=== PATIENT | male | born 2000 | race Asian ===

== ENCOUNTER 2025-06-24 17:50 | Inpatient (IN) | payer OTHER ==
[~2025-06-24] VITALS: Ht 180.3 cm; Wt 97.2 kg
[2025-06-24 19:04] LABS: PLATELET COUNT, AUTOMATED 320 10^3/uL (150-450)
[2025-06-24 19:07] LABS: ETHYL ALCOHOL (ETHANOL) 0.003 % (0.000-0.010)
[2025-06-24 19:09] LABS: ALT/SGPT 30 U/L (7.0-40); AST/SGOT 19 U/L (<34); CALCIUM LEVEL 9.8 MG/DL (8.5-10.1); CARBON DIOXIDE LEVEL 27 MMOL/L (20-31); CHLORIDE LEVEL 103 MMOL/L (98-107); CREATININE FOR GFR 0.92 MG/DL (0.70-1.30); GLOMERULAR FILTRATION RATE > 90.0 (>60); POTASSIUM SERUM 3.9 MMOL/L (3.5-5.1); SALICYLATE LEVEL < 3.0 MG/DL (<30); SODIUM LEVEL 141 MMOL/L (136-145)
[2025-06-24 19:17] LABS: AMPHETAMINES LEVEL URINE NEGATIVE (NEGATIVE); BARBITURATES URINE NEGATIVE (NEGATIVE); BENZODIAZEPINES URINE NEGATIVE (NEGATIVE); COCAINE METABOLITE URINE NEGATIVE (NEGATIVE); METHADONE URINE NEGATIVE (NEGATIVE)
[2025-06-24 19:18] LABS: CANNABINOIDS URINE NEGATIVE (NEGATIVE); OPIATES URINE NEGATIVE (NEGATIVE); PHENCYCLIDINE URINE NEGATIVE (NEGATIVE)
[2025-06-25] MEDS ORDERED: HOME MED LIST COMPLETE! XX SCH
[2025-06-25] MEDS ORDERED: IBUPROFEN 400 MG TAB PO PRN (12:40)
[2025-06-25] MEDS ORDERED: MOM 30 ML SUSPENSION UDC PO PRN (12:40)
[2025-06-25] MEDS ORDERED: MAALOX 30 ML SUSP *UDC PO PRN (12:40)
[2025-06-25] MEDS ORDERED: ACETAMINOPHEN 325 MG TAB PO PRN (12:40)
[2025-06-25] MEDS: traZODone 50 MG TAB PO PRN (22:26)
[2025-06-26 06:25] VITALS: BP 132/69; TEMP 97.2; O2SAT 99
[2025-06-26] MEDS: SERTRALINE HCL 50 MG TAB PO SCH (09:41)
[2025-06-26 15:27] VITALS: BP 104/60; TEMP 97.8; O2SAT 98
[2025-06-27 06:41] VITALS: BP 119/68; TEMP 97.8; O2SAT 99
[2025-06-27 15:18] VITALS: BP 125/56; TEMP 97.9; O2SAT 97
[2025-06-28 06:21] VITALS: BP 129/72; TEMP 97.4; O2SAT 98
[2025-06-28] MEDS ORDERED: TRAZ-252 PO (09:44)
[2025-06-28] MEDS ORDERED: SERT50TA29 PO (09:44)
== END 2025-06-28 13:14 | disposition home or self-care (01) | DRG 881 ==
LOC: M ED 17:50 → M ED INP 06-25 12:42 → M PSY 06-25 13:30
PROVIDERS: ADMIT Psychiatry & Neurology Addiction Psychiatry; ATTEND Psychiatry & Neurology Addiction Psychiatry
DX: F32.A Depression, unspecified (principal); R45.851 Suicidal ideations; F41.1 Generalized anxiety disorder; Z65.3 Problems related to other legal circumstances